=== PATIENT | male | born 1960 | race Caucasian/White ===

== ENCOUNTER → 2016-07-11 | Outpatient (REF) | payer OTHER | LOC: M LABDRAW1 11:46 | PROVIDERS: ATTEND Nurse Practitioner | DX: N28.1 Cyst of kidney, acquired (principal) ==

== ENCOUNTER 2017-04-16 05:53 | Day surgery (SDC) | payer BC, OTHER ==
[~2017-04-16] VITALS: Ht 165.1 cm; Wt 73.7 kg
[~2017-04-16 05:53] MED LIST: FLOV250A2; FOLI1TAB4 PO; HYDR-3713 PO; HYDR200T3 PO; MAG400TA; MULT1TAB10 PO; PANT40TA2 PO; PRED5TA PO; PROAAER10 INH; PROBCAP4 PO; SULF500T2 PO; TYLE500T78 PO; VITA200015
[2017-04-16] MEDS ORDERED: LIDOCAINE 1% MDV 20ML VIAL SQ PRN (06:00)
[2017-04-16] MEDS ORDERED: LR 1,000 ML IV SCH ×3 (06:00→09:30)
[2017-04-16] MEDS ORDERED: CEFAZOLIN SOD 1 GM in APPROPRIATE DILUENT 1 EA IV ONE (06:00)
[2017-04-16] MEDS ORDERED: BUPIVACAINE HCL 0.25% 30 ML VIAL As Ordered ONE (07:17)
[2017-04-16] MEDS ORDERED: fentaNYL 100 MCG/2 ML INJECTION (J3010) As Ordered ONE (07:19)
[2017-04-16] MEDS ORDERED: PROPOFOL 200 MG/20 ML VIAL As Ordered ONE (07:19)
[2017-04-16] MEDS ORDERED: ROCURONIUM BROMIDE 50 MG/5 ML VIAL As Ordered ONE (07:19)
[2017-04-16] MEDS ORDERED: MIDAZOLAM INJ 2 MG/2 ML VIAL (J2250) As Ordered ONE (07:20)
[2017-04-16] MEDS ORDERED: CALCIUM CHLORIDE 10% 1 GM/10 ML SYR As Ordered ONE (08:28)
[2017-04-16] MEDS ORDERED: GLYCOPYRROLATE INJ 0.2 MG/ML 2 ML VIAL As Ordered ONE (08:37)
[2017-04-16] MEDS ORDERED: ONDANSETRON 4MG/2ML VIAL (J2405) As Ordered ONE (08:37)
[2017-04-16] MEDS ORDERED: KETOROLAC 60 MG/2 ML VIAL (J1885) As Ordered ONE (08:55)
[2017-04-16] MEDS ORDERED: ALBUTEROL SULFATE 2.5 MG/0.5 ML INH NEB SOLN As Ordered ONE (09:01)
--- NOTE | 2017-04-16 09:01 | RO ---
DATE OF PROCEDURE: 04/16/2017 PREOPERATIVE DIAGNOSIS: Right inguinal hernia. POSTOPERATIVE DIAGNOSIS: Right inguinal hernia (indirect). PROCEDURE: Laparoscopic right inguinal hernia repair with 3DMax mesh, total extraperitoneal (TEP). SURGEON: Dr. Arnel Kam LANE ATTENDANT: ANESTHESIA: General endotracheal anesthesia. ESTIMATED BLOOD LOSS: Minimal. FLUIDS: Crystalloid. DESCRIPTION OF PROCEDURE: The patient was brought to the operating room and was given general anesthesia. After adequate anesthesia and preoperative antibiotics were established, the patient was prepped and draped in the usual sterile fashion. Next, a periumbilical incision was made with skin knife. Blunt dissection was carried down to fascia. Fascia was incised longitudinally with electrocautery and then using a combination of blunt and sharp dissection the rectus muscle was retracted anteriorly and then the balloon dissector was placed in the preperitoneal space and insufflated under direct visualization. The stationary balloon then was inserted and insufflated to 15 mm of pressure. A 10 mm scope was used to provide visualization and two 5 mm trocars were placed along the midline. Dissection was performed with a hook cautery to take down the loose areolar tissue behind the pubis as well as Jesus's on the left-hand side. This was followed out to the vessels and then out lateral to the internal ring. The peritoneum was seen, followed up to the cord structures and then dissected off the cord structures using some blunt dissection as well as electrocautery to tease down the adhesions. Once this was dissected off and mobilized off to where it dove deep into the pelvis to where the vas dove deep into the pelvis towards the vessels, there was still some fatty tissue along the cord structures. This was a lipoma of the cord that was delivered into the preperitoneal space. Next, a 3DMax mesh was placed in the preperitoneal space, tacked in at Jesus's along the tail of mesh, as well as, anteriorly along the rectus muscle. The preperitoneal space was desufflated under direct visualization. The trocars were removed under direct visualization. #0 Vicryl was used to close fascia at the umbilicus and all incisions were closed with #4-0 Vicryl. Steri-Strips and a dry sterile dressing was applied. The patient was awakened, extubated and brought to the recovery room awake, alert and hemodynamically stable. Sponge and needle counts correct times two.
[2017-04-16] MEDS ORDERED: dexameTHASONE 4 MG/ML 1ML VIAL (J1100) As Ordered ONE ×2 (09:02→09:03)
[2017-04-16] MEDS ORDERED: HYDROmorphone HCL 1 MG/ML SYRINGE (J1170) IV PRN (09:15)
[2017-04-16] MEDS ORDERED: dexameTHASONE 4 MG/ML 1ML VIAL (J1100) IV ONE (09:15)
[2017-04-16] MEDS ORDERED: ONDANSETRON 4MG/2ML VIAL (J2405) IV PRN (09:15)
[2017-04-16] MEDS ORDERED: fentaNYL 100 MCG/2 ML INJECTION (J3010) IV PRN (09:15)
[2017-04-16] MEDS: PERCOCET 5MG/325MG TAB PO PRN ×2 (09:25→10:51)
[2017-04-16] MEDS ORDERED: NORCO, ANEXSIA 5/325MG TABLET (HYDROcodone/ACETAMINOPHEN) PO PRN (09:30)
[2017-04-16] MEDS ORDERED: ALBUTEROL SULFATE 2.5 MG/0.5 ML INH NEB SOLN INH ONE (09:45)
[2017-04-16 11:00] VITALS: BP 101/64
[2017-04-16] MEDS ORDERED: ONDANSETRON 4MG/2ML VIAL (J2405) IV SCH (15:00)
[2017-04-16] MEDS ORDERED: KETOROLAC 30 MG/ML VIAL (J1885) IV SCH (15:00)
== END 2017-04-16 11:26 | disposition home or self-care (01) ==
LOC: M SDC 05:53
PROVIDERS: ATTEND Surgery
DX: K40.90 Unilateral inguinal hernia, without obstruction or gangrene, not specified as recurrent (principal); K22.70 Barrett's esophagus without dysplasia; M06.9 Rheumatoid arthritis, unspecified; K21.9 Gastro-esophageal reflux disease without esophagitis; R23.3 Spontaneous ecchymoses; M54.2 Cervicalgia; J84.9 Interstitial pulmonary disease, unspecified; R06.02 Shortness of breath; Z88.0 Allergy status to penicillin; Z88.1 Allergy status to other antibiotic agents; Z79.899 Other long term (current) drug therapy; Z87.442 Personal history of urinary calculi; Z72.0 Tobacco use
CPT/HCPCS: 49650; C1781; J1100; J1885; J2250; J2405; J3010

== ENCOUNTER → 2017-06-13 | Outpatient (CLI) | payer OTHER, BC ==
[2017-06-13 15:59] LABS: PROSTATIC SPECIFIC AG MONITOR 0.57 NG/ML (< 4.0)
== END ==
LOC: M WUC 08:28
DX: N28.1 Cyst of kidney, acquired (principal)
CPT/HCPCS: 84153

== ENCOUNTER → 2017-07-29 | Outpatient (CLI) | payer BC, OTHER | LOC: M RAD 15:59 | DX: J33.9 Nasal polyp, unspecified (principal) | CPT/HCPCS: 70486 ==

== ENCOUNTER → 2018-10-23 | Outpatient (CLI) | payer OTHER, BC ==
[~2018-10-23] MED LIST changes: +FOLI1TAB11 PO; -FOLI1TAB4 PO; -PANT40TA2 PO; +PANT40TA3 PO
== END ==
LOC: M WUC 10:38
PROVIDERS: ATTEND Nurse Practitioner
DX: N28.1 Cyst of kidney, acquired (principal)

== ENCOUNTER → 2021-03-07 | Outpatient (REF) | payer OTHER, BC ==
[~2021-03-07] MED LIST changes: +FLOV250A; -FLOV250A2; -MAG400TA; +MAGN400T35; +PANT40TA29 PO; -PANT40TA3 PO
== END ==
LOC: M WUC 09:31
PROVIDERS: ATTEND Urology
DX: Z12.5 Encounter for screening for malignant neoplasm of prostate (principal)
CPT/HCPCS: 36415; G0103

== ENCOUNTER → 2022-03-15 | Outpatient (REF) | payer OTHER | LOC: M LABWUC 16:20 | PROVIDERS: ATTEND Urology | DX: Z12.5 Encounter for screening for malignant neoplasm of prostate (principal) ==

== ENCOUNTER → 2023-02-14 | Outpatient (CLI) | payer MEDICARE, BC ==
[~2023-02-14] MED LIST changes: -HYDR200T3 PO; +HYDR200T46 PO
[2023-02-14 13:14] LABS: BASO # 0.1 10^3/uL (0.0-0.2); BASO % 1.6 % (0.0-1.0); EOS # 0.1 10^3/uL (0.0-0.5); EOS % 1.3 % (0.0-3.0); HEMATOCRIT 44.9 % (42.0-52.0); HEMOGLOBIN 14.5 g/dl (13.5-17.5); LYMPH % 11.8 % (24.0-44.0); MEAN CORPUSCULAR HEMOGLOBIN 32.2 pg (27.0-33.0); MEAN CORPUSCULAR HGB CONC 32.3 g/dl (32.0-36.5); MEAN CORPUSCULAR VOLUME 99.8 fl (80.0-96.0); MONO # 0.9 10^3/uL (0.0-0.8); MONO % 10.4 % (2.0-8.0); NEUTROPHILS # 6.2 10^3/uL (1.5-8.5); NEUTROPHILS % 74.5 % (36.0-66.0); PLATELET COUNT, AUTOMATED 329 10^3/uL (150-450); WHITE BLOOD COUNT 8.3 10^3/uL (4.0-10.0)
[2023-02-14 13:39] LABS: ALBUMIN 3.8 G/DL (3.2-5.2); ALKALINE PHOSPHATASE 73 U/L (46-116); ALT/SGPT 26 U/L (7.0-40); AST/SGOT 33 U/L (<34); BILIRUBIN,TOTAL 0.6 MG/DL (0.3-1.2); BLOOD UREA NITROGEN 14 MG/DL (9-23); CALCIUM LEVEL 9.1 MG/DL (8.3-10.6); CARBON DIOXIDE LEVEL 28 MMOL/L (20-31); CHLORIDE LEVEL 103 MMOL/L (98-107); CREATININE FOR GFR 0.75 MG/DL (0.70-1.30); GLOMERULAR FILTRATION RATE > 60.0 (>49); GLUCOSE, FASTING 99 MG/DL (74-106); POTASSIUM SERUM 4.1 MMOL/L (3.5-5.1); SODIUM LEVEL 137 MMOL/L (136-145); TOTAL PROTEIN 8.1 G/DL (5.7-8.2)
== END ==
LOC: M WUC 09:53
PROVIDERS: ATTEND Family Medicine
DX: M54.50 Low back pain, unspecified (principal)

== ENCOUNTER → 2023-02-22 | Outpatient (CLI) | payer MEDICARE, BC | LOC: M WUC 09:05 | PROVIDERS: ATTEND Nurse Practitioner Family | DX: M79.672 Pain in left foot (principal) ==

== ENCOUNTER → 2023-03-08 | Outpatient (CLI) | payer MEDICARE, BC | LOC: M WUC 14:18 | PROVIDERS: ATTEND Internal Medicine Critical Care Medicine | DX: J84.9 Interstitial pulmonary disease, unspecified (principal) ==

== ENCOUNTER → 2023-04-09 | Outpatient (CLI) | payer MEDICARE, BC | LOC: M WUC 14:05 | PROVIDERS: ATTEND Physician Assistant | DX: R06.02 Shortness of breath (principal) ==

== ENCOUNTER → 2023-05-03 | Outpatient (CLI) | payer MEDICARE, BC ==
[2023-05-03 17:42] LABS: BLOOD UREA NITROGEN 15 MG/DL (9-23); CALCIUM LEVEL 9.1 MG/DL (8.3-10.6); CARBON DIOXIDE LEVEL 28 MMOL/L (20-31); CHLORIDE LEVEL 104 MMOL/L (98-107); CREATININE FOR GFR 0.73 MG/DL (0.70-1.30); GLOMERULAR FILTRATION RATE > 60.0 (>49); GLUCOSE, FASTING 94 MG/DL (74-106); POTASSIUM SERUM 4.3 MMOL/L (3.5-5.1); SODIUM LEVEL 140 MMOL/L (136-145)
[2023-05-03 18:02] LABS: BASO # 0.1 10^3/uL (0.0-0.2); BASO % 1.1 % (0.0-1.0); EOS # 0.1 10^3/uL (0.0-0.5); EOS % 1.3 % (0.0-3.0); HEMATOCRIT 41.4 % (42.0-52.0); HEMOGLOBIN 13.3 g/dl (13.5-17.5); LYMPH # 1.2 10^3/uL (1.5-5.0); LYMPH % 12.9 % (24.0-44.0); MEAN CORPUSCULAR HEMOGLOBIN 32.6 pg (27.0-33.0); MEAN CORPUSCULAR HGB CONC 32.1 g/dl (32.0-36.5); MEAN CORPUSCULAR VOLUME 101.5 fl (80.0-96.0); MONO # 0.6 10^3/uL (0.0-0.8); MONO % 6.7 % (2.0-8.0); NEUTROPHILS # 7.4 10^3/uL (1.5-8.5); NEUTROPHILS % 77.6 % (36.0-66.0); PLATELET COUNT, AUTOMATED 329 10^3/uL (150-450); RED BLOOD COUNT 4.08 10^6/uL (4.30-6.10); WHITE BLOOD COUNT 9.5 10^3/uL (4.0-10.0)
== END ==
LOC: M WUC 12:37
PROVIDERS: ATTEND Physician Assistant
DX: R06.09 Other forms of dyspnea (principal)

== ENCOUNTER → 2023-07-15 | Outpatient (CLI) | payer MEDICARE, BC ==
[2023-07-15 14:43] LABS: BASO # 0.2 10^3/uL (0.0-0.2); EOS # 0.1 10^3/uL (0.0-0.5); EOS % 0.6 % (0.0-3.0); HEMATOCRIT 44.3 % (42.0-52.0); HEMOGLOBIN 14.5 g/dl (13.5-17.5); LYMPH # 1.5 10^3/uL (1.5-5.0); LYMPH % 10.4 % (24.0-44.0); MEAN CORPUSCULAR HEMOGLOBIN 33.3 pg (27.0-33.0); MEAN CORPUSCULAR HGB CONC 32.7 g/dl (32.0-36.5); MEAN CORPUSCULAR VOLUME 101.8 fl (80.0-96.0); MONO % 7.1 % (2.0-8.0); NEUTROPHILS # 11.6 10^3/uL (1.5-8.5); NEUTROPHILS % 80.3 % (36.0-66.0); PLATELET COUNT, AUTOMATED 377 10^3/uL (150-450); RED BLOOD COUNT 4.35 10^6/uL (4.30-6.10); WHITE BLOOD COUNT 14.4 10^3/uL (4.0-10.0)
[2023-07-15 14:54] LABS: ERYTHROCYTE SEDIMENTATION RATE 61 mm/hr (0-20)
[2023-07-15 14:59] LABS: ALBUMIN 4.1 G/DL (3.2-5.2); ALKALINE PHOSPHATASE 69 U/L (46-116); ALT/SGPT 26 U/L (7.0-40); AST/SGOT 26 U/L (<34); BILIRUBIN,TOTAL 0.7 MG/DL (0.3-1.2); BLOOD UREA NITROGEN 12 MG/DL (9-23); CALCIUM LEVEL 9.2 MG/DL (8.3-10.6); CARBON DIOXIDE LEVEL 29 MMOL/L (20-31); CHLORIDE LEVEL 101 MMOL/L (98-107); CREATININE FOR GFR 0.67 MG/DL (0.70-1.30); GLOMERULAR FILTRATION RATE > 60.0 (>49); GLUCOSE, FASTING 103 MG/DL (74-106); POTASSIUM SERUM 3.7 MMOL/L (3.5-5.1); SODIUM LEVEL 135 MMOL/L (136-145); TOTAL PROTEIN 8.3 G/DL (5.7-8.2)
[2023-07-15 15:38] LABS: RHEUMATOID FACTOR QUANT > 900.0 IU/ML (<14)
== END ==
LOC: M WUC 09:55
PROVIDERS: ATTEND Internal Medicine Rheumatology
DX: M05.79 Rheumatoid arthritis with rheumatoid factor of multiple sites without organ or systems involvement (principal); M79.641 Pain in right hand; Z79.899 Other long term (current) drug therapy

== ENCOUNTER → 2023-10-29 | Outpatient (CLI) | payer MEDICARE, BC ==
[2023-10-29 17:43] LABS: ALBUMIN 3.9 G/DL (3.2-5.2); ALKALINE PHOSPHATASE 74 U/L (46-116); ALT/SGPT 27 U/L (7.0-40); AST/SGOT 30 U/L (<34); BILIRUBIN,TOTAL 0.5 MG/DL (0.3-1.2); BLOOD UREA NITROGEN 13 MG/DL (9-23); CALCIUM LEVEL 9.4 MG/DL (8.3-10.6); CARBON DIOXIDE LEVEL 30 MMOL/L (20-31); CHLORIDE LEVEL 101 MMOL/L (98-107); CREATININE FOR GFR 0.73 MG/DL (0.70-1.30); GLOMERULAR FILTRATION RATE > 60.0 (>49); GLUCOSE, FASTING 125 MG/DL (74-106); POTASSIUM SERUM 4.2 MMOL/L (3.5-5.1); SODIUM LEVEL 137 MMOL/L (136-145); TOTAL PROTEIN 8.5 G/DL (5.7-8.2)
[2023-10-29 17:45] LABS: BASO # 0.2 10^3/uL (0.0-0.2); BASO % 1.2 % (0.0-1.0); EOS # 0.1 10^3/uL (0.0-0.5); HEMATOCRIT 45.6 % (42.0-52.0); HEMOGLOBIN 15.2 g/dl (13.5-17.5); LYMPH # 1.9 10^3/uL (1.5-5.0); LYMPH % 14.5 % (24.0-44.0); MEAN CORPUSCULAR HEMOGLOBIN 33.4 pg (27.0-33.0); MEAN CORPUSCULAR HGB CONC 33.3 g/dl (32.0-36.5); MEAN CORPUSCULAR VOLUME 100.2 fl (80.0-96.0); MONO % 7.4 % (2.0-8.0); NEUTROPHILS # 9.9 10^3/uL (1.5-8.5); NEUTROPHILS % 75.4 % (36.0-66.0); PLATELET COUNT, AUTOMATED 417 10^3/uL (150-450); RED BLOOD COUNT 4.55 10^6/uL (4.30-6.10)
[2023-10-29 17:54] LABS: ERYTHROCYTE SEDIMENTATION RATE 53 mm/hr (0-20)
[2023-10-29 17:56] LABS: APPEARANCE, URINE CLEAR (CLEAR); BACTERIA, URINE AUTO NEGATIVE (NEGATIVE); BILIRUBIN, URINE AUTO NEGATIVE (NEGATIVE); BLOOD, URINE BLOOD NEGATIVE (NEGATIVE); COLOR, URINE AMBER (YELLOW); GLUCOSE, URINE (UA) AUTO NEGATIVE (NEGATIVE); KETONE, URINE AUTO NEGATIVE (NEGATIVE); LEUKOCYTE ESTERASE, URINE AUTO NEGATIVE (NEGATIVE); MUCUS, URINE SMALL (NEGATIVE); NITRITE, URINE AUTO NEGATIVE (NEGATIVE); PROTEIN, URINE AUTO 1+ mg/dL (NEGATIVE); RBC, URINE AUTO 1 /HPF (0-3); SPECIFIC GRAVITY URINE AUTO 1.015 (1.002-1.035); SQUAMOUS EPITHELIAL CELL UR AU 0 /HPF (0-6); UROBILINOGEN, URINE AUTO 0.2 mg/dL (0.0-2.0); WBC, URINE AUTO 0 /HPF (0-3)
[2023-10-30 07:02] LABS: WHITE BLOOD COUNT 13.1 10^3/uL (4.0-10.0)
== END ==
LOC: M WUC 11:00
PROVIDERS: ATTEND Family Medicine
DX: J44.1 Chronic obstructive pulmonary disease with (acute) exacerbation (principal); K21.9 Gastro-esophageal reflux disease without esophagitis; M06.9 Rheumatoid arthritis, unspecified

== ENCOUNTER → 2024-01-17 | Outpatient (CLI) | payer MEDICARE, BC ==
[~2024-01-17] MED LIST changes: +TIOT18CA; +VITATAB64 PO
== END ==
LOC: M RAD 15:05
PROVIDERS: ATTEND Internal Medicine Hematology & Oncology
DX: Z53.9 Procedure and treatment not carried out, unspecified reason (principal)

== ENCOUNTER → 2024-01-24 | Outpatient (CLI) | payer MEDICARE, BC | LOC: M RAD 16:01 | PROVIDERS: ATTEND Dietitian, Registered | DX: D47.2 Monoclonal gammopathy (principal); M51.26 Other intervertebral disc displacement, lumbar region ==

== ENCOUNTER → 2024-02-12 | Outpatient (CLI) | payer MEDICARE, BC | LOC: M WUC 08:10 | PROVIDERS: ATTEND Physician Assistant | DX: K22.70 Barrett's esophagus without dysplasia (principal); K21.9 Gastro-esophageal reflux disease without esophagitis; E55.9 Vitamin D deficiency, unspecified; Z51.81 Encounter for therapeutic drug level monitoring ==

== ENCOUNTER → 2024-02-24 | Outpatient (CLI) | payer MEDICARE, BC | LOC: M RAD 07:33 | PROVIDERS: ATTEND Internal Medicine Hematology & Oncology | DX: Z87.891 Personal history of nicotine dependence (principal) ==

== ENCOUNTER → 2024-05-22 | Outpatient (CLI) | payer MEDICARE, BC | LOC: M WUC 09:26 | PROVIDERS: ATTEND Family Medicine | DX: R79.89 Other specified abnormal findings of blood chemistry (principal) ==

== ENCOUNTER → 2024-07-30 | Outpatient (REF) | payer MEDICARE, BC | LOC: M LABWUC 12:19 → M LAB REF 12:19 | PROVIDERS: ATTEND Urology | DX: Z12.5 Encounter for screening for malignant neoplasm of prostate (principal); Z79.899 Other long term (current) drug therapy ==

== ENCOUNTER → 2024-09-15 | Outpatient (CLI) | payer MEDICARE, BC | LOC: M PLAIMG 13:36 | PROVIDERS: ATTEND Nurse Practitioner Acute Care | DX: I27.20 Pulmonary hypertension, unspecified (principal); R06.02 Shortness of breath ==

== ENCOUNTER → 2024-09-29 | Outpatient (CLI) | payer MEDICARE, BC | LOC: M PLARAD 09:20 | PROVIDERS: ATTEND Nurse Practitioner Acute Care | DX: R93.89 Abnormal findings on diagnostic imaging of other specified body structures (principal); R91.8 Other nonspecific abnormal finding of lung field | CPT/HCPCS: 78815; A9552 ==

== ENCOUNTER → 2024-09-29 | Outpatient (CLI) | payer MEDICARE, BC | LOC: M RAD 17:02 | PROVIDERS: ATTEND Nurse Practitioner Acute Care | DX: R93.89 Abnormal findings on diagnostic imaging of other specified body structures (principal); R91.8 Other nonspecific abnormal finding of lung field; I25.10 Atherosclerotic heart disease of native coronary artery without angina pectoris; I31.39 Other pericardial effusion (noninflammatory) ==

== ENCOUNTER 2025-02-20 09:13 | Observation (INO) | payer MEDICARE, BC ==
[~2025-02-20] VITALS: Ht 160 cm; Wt 49.7 kg
[~2025-02-20 09:13] MED LIST changes: -MAGN400T35; +MAGN400T35 PO; -TIOT18CA; +TIOT18CA PO
[2025-02-20 09:25] VITALS: TEMP 97.6
[2025-02-20 09:28] VITALS: O2SAT 76
[2025-02-20] MEDS ORDERED: MORPHINE 4 MG/ML 1 ML VIAL IV PRN (09:30)
[2025-02-20] MEDS: ONDANSETRON 4MG 2ML VIAL IV PRN (09:39)
[2025-02-20] MEDS: MORPHINE 4 MG/ML 1 ML VIAL IV PRN (09:39)
[2025-02-20] MEDS ORDERED: HOME MED LIST COMPLETE! XX SCH (10:20)
[2025-02-20] MEDS ORDERED: MORP-137 PO (10:20)
[2025-02-20] MEDS ORDERED: SENN-186 PO (10:20)
[2025-02-20] MEDS ORDERED: PANT20TA6 PO (10:20)
[2025-02-20] MEDS ORDERED: VENTAER INH (10:20)
[2025-02-20] MEDS ORDERED: MULTTAB61 PO (10:20)
[2025-02-20] MEDS ORDERED: NALO25TA PO (10:20)
[2025-02-20] MEDS ORDERED: D32000TA2 PO (10:20)
[2025-02-20] MEDS ORDERED: ALBU2.5V10 INH (10:20)
[2025-02-20 11:03] VITALS: BP 152/97; O2SAT 99
[2025-02-20] MEDS: SCOPOLAMINE 1MG TRANSDERMAL PATCH TOP PRN (11:24)
[2025-02-20] MEDS: MORPHINE 10 MG/0.5 ML ORAL CONCENTRATE SOLUTION U/D SL PRN (12:18)
[2025-02-20] MEDS: LORazepam 1 MG TAB PO PRN (12:19)
[2025-02-20] MEDS ORDERED: SENNA 8.6 MG TAB PO PRN (12:45)
[2025-02-20] MEDS: PANTOPRAZOLE 20 MG TAB PO SCH (13:49)
[2025-02-20] MEDS: MORPHINE SULFATE TAB IMM. REL. 15 MG PO SCH (13:49)
[2025-02-20] MEDS: IPRATROPIUM 0.5 MG/ALBUTEROL 2.5 MG INH SOL UD 3 ML NEB SCH (14:00)
[2025-02-20] MEDS: HYOSCYAMINE SULFATE 0.125 MG SUBL TABLET PO PRN (22:32)
== END 2025-02-20 23:59 | disposition expired ==
LOC: EDBD 09:13 → M ED 09:13 → M ED INP 09:14 → M MSPAV 14:49
PROVIDERS: ADMIT Internal Medicine Nephrology; ATTEND Internal Medicine Nephrology
DX: Z51.5 Encounter for palliative care (principal); J84.9 Interstitial pulmonary disease, unspecified; Z66 Do not resuscitate; M06.9 Rheumatoid arthritis, unspecified; J96.21 Acute and chronic respiratory failure with hypoxia; D47.2 Monoclonal gammopathy; Z99.81 Dependence on supplemental oxygen; K21.9 Gastro-esophageal reflux disease without esophagitis; M15.9 Polyosteoarthritis, unspecified; K22.70 Barrett's esophagus without dysplasia; F17.200 Nicotine dependence, unspecified, uncomplicated; Z79.890 Hormone replacement therapy; Z79.52 Long term (current) use of systemic steroids; Z79.899 Other long term (current) drug therapy; Z88.0 Allergy status to penicillin; Z88.1 Allergy status to other antibiotic agents; Z88.8 Allergy status to other drugs, medicaments and biological substances; G93.41 Metabolic encephalopathy
CPT/HCPCS: 96374; 96375; 99284; G0378; J2060; J2405